=== PATIENT | male | born 1995 | race Caucasian/White ===

== ENCOUNTER 2019-05-25 04:14 | Emergency (ER) | payer BC ==
[~2019-05-25] VITALS: Ht 172.7 cm; Wt 90.7 kg
[2019-05-25] MEDS ORDERED: MOBIC15 MG PO (04:25)
[2019-05-25] MEDS ORDERED: ZOFRAN4 MG PO (05:40)
== END 2019-05-25 05:59 | disposition home or self-care (01) ==
LOC: ED 04:14
DX: K52.9 Noninfective gastroenteritis and colitis, unspecified (principal); Z79.899 Other long term (current) drug therapy
CPT/HCPCS: 80053; 81001; 83690; 85025; 96374; 99284-25; J2405; J7030

== ENCOUNTER 2024-08-24 17:39 | Emergency (ER) | payer OTHER ==
[~2024-08-24] VITALS: Ht 172.7 cm; Wt 97.5 kg
[~2024-08-24 17:39] MED LIST: MOBIC15 MG PO; ZOFRAN4 MG PO
[2024-08-24 19:42] LABS: BILIRUBIN, URINE NEGATIVE (negative); BLOOD/HGB, URINE NEGATIVE (Negative); KETONE, URINE NEGATIVE (Negative); LEUK ESTERASE, URINE NEGATIVE (negative); NITRITE, URINE NEGATIVE (negative)
[2024-08-24 19:49] LABS: RED BLOOD CELLS, URINE 0-1 /hpf (0-5)
[2024-08-24 19:50] LABS: BACTERIA, URINE NONE SEEN /hpf (negative); CASTS, URINE NONE SEEN \\lpf; COLLECTION TYPE, URINE CLEAN CATCH; CRYSTALS, URINE NONE SEEN (0-1+); EPITHELIAL CELLS, URINE SQUAMOUS 1+ /lpf (0-1+); REFLEX CULTURE, URINE No (No)
[2024-08-24 21:10] LABS: N. GONORRRHOEAE BY PCR NOT DETECTED (NOT DETECT)
[2024-08-24] MEDS ORDERED: BACTRIM DS TAB1 EACH PO (22:08)
[2024-08-24 22:15] VITALS: BP 129/94
[2024-08-24] MEDS ORDERED: TRIMETHOPRIM/SULFAMETHOXAZOLE 1 EA TAB PO ONE (22:15)
== END 2024-08-24 22:17 | disposition home or self-care (01) ==
LOC: ED 17:39
PROVIDERS: Emergency Medicine
DX: N50.82 Scrotal pain (principal); Z79.1 Long term (current) use of non-steroidal anti-inflammatories (NSAID); Z79.899 Other long term (current) drug therapy
CPT/HCPCS: 76870; 81001; 99284; A9270